=== PATIENT | male | born 1990 | race Caucasian/White ===

== ENCOUNTER 2018-04-26 14:35 | Emergency (ER) | payer BC ==
[~2018-04-26] VITALS: Ht 175.3 cm; Wt 65.2 kg
[~2018-04-26 14:35] MED LIST: ALBU8HFA PO; NO HOME MEDS
[2018-04-26 14:52] VITALS: BP 130/77
[2018-04-26] MEDS ORDERED: azithromycin 250mg tablet PO ONE (15:05)
[2018-04-26] MEDS ORDERED: AZIT-63 PO ×2 (15:06→15:10)
== END 2018-04-26 15:56 | disposition home or self-care (01) ==
LOC: ER 14:36
DX: J32.0 Chronic maxillary sinusitis (principal); Z79.2 Long term (current) use of antibiotics; Z79.899 Other long term (current) drug therapy
CPT/HCPCS: 99283